=== PATIENT | female | born 1970 | race Caucasian/White ===

== ENCOUNTER 2016-09-18 18:24 | Emergency (ER) | payer OTHER ==
[~2016-09-18 18:24] MED LIST: ALPRAZOLAM PO; MEDROL PO; SOMA COMPOUND1 UDTAB PO
== END 2016-09-18 20:25 | disposition home or self-care (01) ==
LOC: CED 18:24 → CFTX 18:24
DX: S39.012A Strain of muscle, fascia and tendon of lower back, initial encounter (principal); V49.10XA Passenger injured in collision with unspecified motor vehicles in nontraffic accident, initial encounter; F17.210 Nicotine dependence, cigarettes, uncomplicated; Y92.410 Unspecified street and highway as the place of occurrence of the external cause
CPT/HCPCS: 99283